=== PATIENT | female | born 1960 | race Caucasian/White ===

== ENCOUNTER 2017-01-10 08:06 | Day surgery (SDC) | payer OTHER ==
[2017-01-06 10:50] VITALS: BMI 31.5
[~2017-01-10 08:06] MED LIST: Pre Op ABX Message 1 EACH MISC MISCELLANE ONE
[2017-01-10] MEDS ORDERED: ONDANSETRON 4 MG/2 ML VIAL IVP ONE (08:11)
[2017-01-10] MEDS ORDERED: DEXAMETHASONE SOD PHOSPHATE 10 MG/ML 1 ML VIAL IV ONE (08:11)
[2017-01-10] MEDS ORDERED: MIDAZOLAM 2 MG/2 ML VIAL IV PRN (08:11)
[2017-01-10] MEDS ORDERED: LACTATED RINGERS 1,000 ML IV SCH (08:11)
[2017-01-10 08:33] VITALS: TEMP 97.9
[2017-01-10] MEDS ORDERED: LIDOCAINE 1% 20 ML VIAL (10MG/ML) FOR IV START INTRADERMA ONE (08:34)
[2017-01-10] MEDS ORDERED: PROPOFOL 10 MG/ML 20 ML VIAL IV ONE (09:15)
[2017-01-10] MEDS ORDERED: KETOROLAC 30 MG/ML 1 ML VIAL ONE (09:15)
[2017-01-10] MEDS ORDERED: BUPIVACAINE (PF) 0.25% 30 ML VIAL MISCELLANE ONE (09:24)
[2017-01-10] MEDS ORDERED: methylPREDNISolone ACETATE 80 MG/ML 1 ML VIAL INJ ONE (09:24)
[2017-01-10] MEDS: HYDROmorphone 1 MG/ML 1 ML SYRINGE IVP PRN ×2 (09:35→09:45)
--- NOTE | 2017-01-10 09:45 | P.OP ---
Date of Procedure: 01/10/17 Preoperative Diagnosis: Arthrofibrosis left knee, status post total knee arthroplasty. Postoperative Diagnosis: Arthrofibrosis left knee, status post total knee arthroplasty Procedure(s) Performed: Manipulation under anesthesia left knee Intra-articular cortisone injection Anesthesia: DESHAWN Surgeon: Kane Rubio Estimated Blood Loss (ml): 0 Pathology: none sent Condition: stable Disposition: PACU Indications for Procedure: This is a 48-year-old female has had a total knee arthroplasty by myself in October. She has subsequently developed arthrofibrosis despite aggressive physical therapy after discussing the surgical and nonsurgical treatment options with her at length, she wishes to proceed with a manipulation under anesthesia of her left knee, and injection of cortisone. Consent was obtained Operative Findings: Operative findings are consistent with severe arthrofibrosis of the left knee Description of Procedure: Patient was seen and evaluated in the post operative area. The consent was reviewed and the operative site was marked with a skin marker. A universal timeout was then performed, which confirmed the patient's name, surgical site, ALLERGIES, and consent. A general anesthetic was administered by the anesthesia department. After adequate anesthesia was administered, the left knee was then examined. Her range of motion was -5-80 passively. A gentle manipulation was then performed, with multiple lesions felt to be released. Her postoperative range of motion was 0-120. Next, her knee was then prepped with ChloraPrep. An intra-articular injection of cortisone was performed, which consisted of 80 mg of Depo-Medrol and 5 mL of 0.25% ropivacaine. This was done in a sterile fashion. A Band-Aid was placed over the injection site. The patient then recovered in the postoperative unit without incident. Patient will present to physical therapy later today, and then follow-up with me in 1 week.
[2017-01-10 10:55] VITALS: BP 155/88; PULSE 78; RESP 18
== END 2017-01-10 11:18 | disposition home or self-care (01) ==
LOC: OR 08:06
PROVIDERS: ATTEND Orthopaedic Surgery
DX: M24.662 Ankylosis, left knee (principal); Z96.652 Presence of left artificial knee joint; I10 Essential (primary) hypertension; Z95.810 Presence of automatic (implantable) cardiac defibrillator; Z88.8 Allergy status to other drugs, medicaments and biological substances; Z79.899 Other long term (current) drug therapy; Z87.891 Personal history of nicotine dependence
CPT/HCPCS: 27570; J1040; J1100; J2405; J1885; J1170; J2704

== ENCOUNTER → 2017-03-21 | Outpatient (CLI) | payer OTHER ==
[2017-03-21 14:41] LABS: CH 28.8; CHCM 33.2; HCT 45.6 % (34.0-46.0); HDW 2.78; HGB 14.5 gm/dL (11.4-16.0); MCH 27.6 pg (25.0-35.0); MCHC 31.7 g/dL (31.0-37.0); Mean Platelet Volume 6.2; RBC 5.24 m/uL (3.80-5.40); RDW 14.3 % (11.5-15.5); WBC 6.3 k/uL (3.8-10.6)
[2017-03-21 14:56] LABS: ALT 34 U/L (9-52); AST 21 U/L (14-36); Alkaline Phosphatase 89 U/L (38-126); Anion Gap 10 mmol/L; Appearance,Urine Clear (Clear); Bilirubin,Urine Negative (Negative); Blood Urea Nitrogen 13 mg/dL (7-17); Calcium 9.4 mg/dL (8.4-10.2); Carbon Dioxide 27 mmol/L (22-30); Chloride 105 mmol/L (98-107); Glucose 99 mg/dL (74-99); Glucose,Urine (UA) Negative (Negative); Ketones,Urine Negative (Negative); Leukocyte Esterase,Urine Negative (Negative); Nitrite,Urine Negative (Negative); Non-African American GFR(MDRD) >60 (>60 ml/min/1.73 sqM); PH, Urine 5.5 (5.0-8.0); Potassium 4.1 mmol/L (3.5-5.1); Protein,Urine Negative (Negative); Sodium 142 mmol/L (137-145); Specific Gravity,Urine 1.007 (1.001-1.035); Total Bilirubin 0.7 mg/dL (0.2-1.3); Total Protein 7.2 g/dL (6.3-8.2); UA Billing (MACRO vs. MICRO) CHEM; Urobilinogen,Urine <2.0 mg/dL (<2.0)
[2017-03-21 14:57] LABS: Partial Thromboplastin Time 25.3 sec (22.0-30.0); Prothrombin Time 10.6 sec (9.0-12.0)
== END | disposition home or self-care (01) ==
LOC: LABWHC1 14:09
PROVIDERS: ATTEND Orthopaedic Surgery
DX: Z01.812 Encounter for preprocedural laboratory examination (principal)
CPT/HCPCS: 36415; 80053; 81003; 85027; 85610; 85730; 87070

== ENCOUNTER 2017-03-29 09:49 | Inpatient (IN) | payer OTHER ==
[2017-03-24 14:38] VITALS: BMI 34.4
[~2017-03-29 09:49] MED LIST changes: +ACETAMINOPHEN TAB 500 MG TAB PO ONE; +DEXAMETHASONE SOD PHOSPHATE 10 MG/ML 1 ML VIAL IV ONE; +HYDROmorphone 1 MG/ML 1 ML SYRINGE IVP PRN; +MELOXICAM 7.5 MG TAB PO ONE; +MIDAZOLAM 2 MG/2 ML VIAL IV PRN; +ONDANSETRON 4 MG/2 ML VIAL IVP ONE; -Pre Op ABX Message 1 EACH MISC MISCELLANE ONE; +ROPIVACAINE 246.25 MG, EPINEPHrine 0.5 MG, KETOROLAC 30 MG, cloNIDine HCL/PF 80 MCG, WA... MISCELLANE ONE; +TRANEXAMIC ACID 1,000 MG in SODIUM CHLORIDE 0.9% 100 ML IVPB ONE; +ceFAZolin 2 GM in SODIUM CHLORIDE 0.9% 100 ML IVPB ONE
[2017-03-29] MEDS: LACTATED RINGERS 1,000 ML IV SCH (10:59)
[2017-03-29] MEDS ORDERED: MIDAZOLAM 2 MG/2 ML VIAL IVP ONE (11:27)
[2017-03-29] MEDS ORDERED: ROPIVACAINE 1,100 MG, SODIUM CHLORIDE 0.9% 330 ML MISCELLANE PRN ×2 (11:50)
[2017-03-29] MEDS ORDERED: TRANEXAMIC ACID 1,000 MG/10 ML VIAL ONE (12:05)
[2017-03-29] MEDS ORDERED: diphenhydrAMINE 50 MG/ML 1 ML VIAL ONE (12:05)
[2017-03-29] MEDS ORDERED: SODIUM CHLORIDE 0.9% 100 ML BAG ONE (12:05)
[2017-03-29] MEDS ORDERED: fentaNYL (PF) 50 MCG/ML 2 ML AMP ONE (12:05)
[2017-03-29] MEDS ORDERED: MIDAZOLAM 2 MG/2 ML VIAL ONE (12:05)
[2017-03-29] MEDS ORDERED: PROPOFOL 10 MG/ML 20 ML VIAL IV ONE (12:05)
[2017-03-29] MEDS ORDERED: ceFAZolin 3,000 MG in SODIUM CHLORIDE 0.9% IRRIGATIO 3,000 ML IRRIGATION ONE (12:43)
[2017-03-29] MEDS ORDERED: LACTATED RINGERS 1,000 ML IV ONE (13:12)
[2017-03-29] MEDS ORDERED: NA PHOS,M-B/NA PHOS,DI-BA 133 ML ENEMA RECTAL PRN (13:39)
[2017-03-29] MEDS ORDERED: HYDROmorphone 1 MG/ML 1 ML SYRINGE IVP PRN ×3 (13:39)
[2017-03-29] MEDS ORDERED: MAGNESIUM HYDROXIDE 2,400 MG/10 ML CUP PO PRN (13:39)
[2017-03-29] MEDS ORDERED: ONDANSETRON 4 MG/2 ML VIAL IVP PRN (13:39)
[2017-03-29] MEDS ORDERED: HYDROcodone/APAP 5-325MG 1 EACH TAB PO PRN (13:39)
[2017-03-29] MEDS ORDERED: DIAZEPAM 5 MG TAB PO PRN ×2 (13:39)
[2017-03-29] MEDS ORDERED: BISACODYL 10 MG SUPP RECTAL PRN (13:39)
[2017-03-29] MEDS ORDERED: NALOXONE 0.4 MG/ML 1 ML VIAL IV PRN (13:39)
--- NOTE | 2017-03-29 15:11 | P.OP ---
Date of Procedure: 03/29/17 Preoperative Diagnosis: 1. Severe osteoarthritis right knee 2. Arthrofibrosis left knee Postoperative Diagnosis: 1. Severe osteoarthritis right knee 2. Arthrofibrosis left knee Procedure(s) Performed: 1. Right total knee arthroplasty 2. Manipulation under anesthesia left knee Implants: Pérez and Nephew Oxinium femoral component size 6, right Pérez & Nephew Patrizia II right nonporous tibial baseplate size 5 Pérez [employer] Nephew size 13 mm Legion XLPE dished articular insert, size 5-6 Pérez [employer]hew Patrizia II resurfacing patellar component, 32 mm All components were cemented using Patrick bone cement.. The articulation is ceramic on polyethylene. Anesthesia: spinal Surgeon: Kane Rubio Roastmaster #1: Marci Adhikari Roastmaster #2: Jodee Osullivan Estimated Blood Loss (ml): 50 Pathology: other (Bone and cartilage) Condition: stable Disposition: PACU Indications for Procedure: After failure of conservative treatment we discussed the surgical and nonsurgical treatment options at length. Patient wishes to proceed with a total knee arthroplasty. Complications specific to this procedure were discussed at length, including but not limited to infection, bleeding, stiffness , and nerve injury. Patient is aware of all these complications and informed consent was obtained. Also, she has had a left total knee arthroplasty performed in the past. Continues to have some mild stiffness, and wishes to have her left knee manipulated under anesthesia. Informed consent was also obtained for this procedure. Operative Findings: The operative findings are consistent with severe osteoarthritis of the right knee, and arthrofibrosis of the left knee. Description of Procedure: Patient was seen in the preoperative area consent was reviewed and operative site was marked with a skin marker. An adductor canal pain catheter was placed by anesthesia in the preoperative area. Patient was then brought to the operating room and given preoperative antibiotics intravenously. A spinal anesthetic was administered by the anesthesia department. A tourniquet was placed on the upper thigh and the lower extremity was prepped and draped in usual sterile fashion. A gram of transexamic acid was given. A universal timeout was then performed which confirmed the patient's name, surgical site, ALLERGIES, and consent. The left knee was then examined under anesthesia. Her range of motion was 0-115 . A gentle manipulation was then performed to the left knee with multiple adhesions felt to be released. Final flexion was 125. The right lower extremity was then exsanguinated and tourniquet was inflated to 250 mmHg. A standard and anterior midline approach to the knee was performed. The skin and subcutaneous tissue was dissected down to the patellar tendon. A medial parapatellar arthrotomy was then performed. The knee was then extended, the patellar was everted, and the knee was again flexed. Anterior horns of both menisci were excised, and a release was performed to the posterior medial aspect of the knee. On gross visual inspection, there was complete loss of articular cartilage in the medial and patellofemoral joint spaces. There was also significant cartilage damage in the lateral compartment. There were multiple periarticular osteophytes which were then removed with a Ronguer. The femoral canal was then opened with the appropriate drill, and the intramedullary femoral cutting guide was then placed and set for 4 of valgus. The distal femoral cutting block was then pinned in place, and the distal femur was then cut. The cutting block was then removed and the cut was checked for flatness. Next, the sizing guide was then placed and set for 3 external rotation based off of the epicondylar axis and Whitesides line. After the femur was sized, the appropriate 4-in-1 cutting block was then pinned in place. The anterior condyles were cut without notching. The posterior and chamfer cuts were performed while protecting the collateral ligaments. The cutting block was then removed, and the femoral canal was plugged with autologous bone. Attention was then directed to the tibia. The remaining ACL was removed with a Ronguer, and the tibia was then gently subluxed forward with a large bent knee retractor. Any remaining menisci was excised. The posterior lateral corner was cauterized in order to cauterize the lateral geniculate artery. The extra medullary tibial cutting guide was then placed, set for the appropriate rotation , slope, and depth of resection. The proximal tibia cutting guide was then pinned in place. Proximal tibia was then cut and sized. Next trials were then placed with the appropriate-sized insert. The knee was able to fully extend and flex to 130 and was stable throughout all range of motion. The knee was then extended, patella everted. Patella was then measured, and then using an osteotomy guide, the patella was cut at the appropriate level. The patella was then measured and drilled and the patella trial was then placed. The knee was then taken through range of motion with the patella trial and the patella tracked normally. The knee was then extended patella trial was then removed and the patella was everted. Knee was then flexed and lug holes were drilled through the femoral trial and the femoral trial was then removed. The tibial was then exposed, and the tibial broach guide was then pinned in place after it was set for the appropriate rotation to allow for the most coverage without overhang. The tibia was then reamed and broached. The cut surfaces of bone were then irrigated with pulsatile lavage. The posterior structures were injected with the ropivacaine solution. The knee was also irrigated with Irrisept solution. The components were then opened, the cement was mixed, and the components were then cemented in place. The cement was allowed to harden with the knee in full extension. While the cement was hardening, the remaining soft tissues were then injected with a ropivacaine solution, which consisted of 246.25 mg of ropivacaine, 0.5 mg of epinephrine, 30 mg of Toradol, 80 g of clonidine, and 48.45 mL of sterile water, for a total of 100 mL of fluid injected. After the cemented hardened. The tourniquet was released, and hemostasis was obtained. A second gram of transexamic acid was given. The knee was again irrigated. The knee was again taken through range of motion and found to be stable throughout all range of motion of 0-130 , and the patella tracked normally. The fascia was then closed with #2 strata fix suture. The subcutaneous tissue was closed with 3-0 Vicryl and 3-0 strata fix. Dermabond tape was used for the skin and placed with the knee in flexion. The patient was placed in a sterile dressing. Patient was then transferred to recovery room in stable condition. The assistant site manager AYAAN Hood was required due the complexity surgery and the need for a skilled surgical instruments inspector. She assisted in positioning, draping , retraction, and closure of the wound.
--- NOTE | 2017-03-29 15:12 | XR ---
EXAMINATION TYPE: XR knee limited RT DATE OF EXAM: 03/29/2017 2:05 PM COMPARISON: NONE TECHNIQUE: Two views submitted HISTORY: Post op FINDINGS: There is a prosthetic knee in near anatomic alignment. There is soft tissue edema and emphysema. IMPRESSION: 1. Postoperative change. Appears in near-anatomic alignment
[2017-03-29] MEDS: SODIUM CHLORIDE 0.9% 1,000 ML IV SCH (16:15)
[2017-03-29] MEDS: HYDROcodone/APAP 5-325MG 1 EACH TAB PO PRN (17:00)
--- NOTE | 2017-03-29 19:33 | P.ONQ ---
Anesthesiology Proc Note - PNB - Peripheral Nerve Block Performed Right Adductor Canal Indication: Acute Post-Operative Pain, Dx/Pain Location (Right Knee) Specifically requested for management of pain by DrKathya: Kane Rubio Sedation Type: Sedate with meaningful contact maintained Preparation: Sterile Dressing Position: Supine Catheter: Indwelling Needle Size: 100mm (4") Needle Gauge: 21, Other (see comment) (Pajunk Needle) Technique: Ultrasound Injectate: 0.5% Ropivacaine (see comment for volume) (30 cc) Blood Aspirated: No Pain Paresthesia on Injection Noted: No Resistance on Injection: Normal Events: Uneventful and Well Tolerated
[2017-03-29] MEDS: ASPIRIN 325 MG TAB PO SCH (20:53)
[2017-03-29] MEDS: SENNOSIDES-DOCUSATE SODIUM 1 EACH TAB PO SCH (20:53)
[2017-03-29] MEDS: ceFAZolin 2 GM in SODIUM CHLORIDE 0.9% 100 ML IVPB SCH (20:53)
--- NOTE | 2017-03-29 23:28 | CONS ---
DATE OF CONSULTATION: 03/29/2017 REASON FOR CONSULTATION: Medical management requested by Dr. Rubio. CONSULTATION: This is a pleasant 56-year-old patient of Dr. Oh who has undergone right total knee arthroplasty. Patient's pain is controlled. No nausea, vomiting or chest pain. Patient's chronic stable medical conditions include hypertension, arthritis in other joints. She also has an AICD for sudden cardiac in 2004. Patient's family is at the bedside. Denies any chest pain. REVIEW OF SYSTEMS: CONSTITUTIONAL: Tired. HEENT: None. RESPIRATORY: None. CARDIOVASCULAR: None. GASTROINTESTINAL: None. GENITOURINARY: None. MUSCULOSKELETAL: Pain in different joints. HEMATOLOGIC: None. LYMPHATICS: None. PSYCHIATRY: None. NEUROLOGICAL: None. PAST MEDICAL HISTORY: 1. Hypertension. 2. Osteoarthritis. 3. Sudden cardiac . PAST SURGICAL HISTORY: 1. Cardiac ablation. 2. Cardiac catheterization. 3. Left knee replaced. SOCIAL HISTORY: The patient owns [employer] in [place]. Lives by herself. Patient smoked a small amount for a few years; stopped some time ago. FAMILY HISTORY: Factor V Leiden. HOME MEDICATIONS: 1. Quinidine 324 mg p.o. at bedtime. 2. Tenormin 25 mg p.o. daily. 3. Aspirin 81 mg p.o. daily. ALLERGIES: AMIODARONE and LIDOCAINE. PHYSICAL EXAMINATION: VITAL SIGNS ON PRESENTATION: Temperature 96.8, pulse 68, respiration 18, blood pressure 122/61, pulse ox 97% on room air. GENERAL APPEARANCE: Well built; BMI 34.4. Lying in bed. EYES: Pupils equal. Conjunctivae normal. HEENT: External appearance of nose and ears normal. Oral cavity normal. NECK: JVD not raised. Mass not palpable. RESPIRATORY: Effort normal. LUNGS: Diminished breath sounds. CARDIOVASCULAR: First and second sounds normal. No edema. ABDOMEN: Soft, nontender. Liver and spleen not palpable. LYMPHATIC: No lymph node palpable in neck or axillae. PSYCHIATRY: Alert and oriented x3. Mood and affect normal. INVESTIGATIONS: No blood work from today. ASSESSMENT: 1. Right total knee arthroplasty. 2. Essential hypertension. 3. Primary osteoarthritis in multiple joints. 4. History of sudden cardiac with AICD in place. 5. Obesity; body mass index of 34.4. PLAN: Patient's blood pressure medication will be resumed. Patient is on aspirin for DVT prophylaxis. Venodyne boots in place. Care was discussed with the patient. Thank you, Dr. Rubio.
[2017-03-30] MEDS: HYDROcodone/APAP 5-325MG 1 EACH TAB PO PRN ×4 (01:14→22:25)
[2017-03-30] MEDS: ceFAZolin 2 GM in SODIUM CHLORIDE 0.9% 100 ML IVPB SCH (04:00)
[2017-03-30 08:07] LABS: Basophils % (A) 0 %; CH 28.8; Eosinophils # (A) 0.1 k/uL (0-0.7); Eosinophils % (A) 1 %; HCT 36.5 % (34.0-46.0); HDW 2.77; HGB 12.1 gm/dL (11.4-16.0); Luc # (Auto) 0.19; Luc % (Auto) 1; Lymphocytes # (A) 1.3 k/uL (1.0-4.8); Lymphocytes % (A) 10 %; MCH 28.9 pg (25.0-35.0); MCV 87.5 fL (80.0-100.0); Mean Platelet Volume 6.3; Monocytes # (A) 0.8 k/uL (0-1.0); Monocytes % (A) 6 %; Neutrophils # (A) 11.3 k/uL (1.3-7.7); Neutrophils % (A) 83 %; RBC 4.17 m/uL (3.80-5.40); RDW 14.1 % (11.5-15.5); WBC 13.7 k/uL (3.8-10.6); WBC (Perox) 14.67
[2017-03-30] MEDS: LACTATED RINGERS 1,000 ML IV SCH (08:59)
[2017-03-30] MEDS: SODIUM CHLORIDE 0.9% 1,000 ML IV SCH ×2 (08:59→22:27)
[2017-03-30] MEDS: ATENOLOL 25 MG TAB PO SCH (09:00)
[2017-03-30] MEDS: ASPIRIN 325 MG TAB PO SCH ×2 (09:00→22:24)
--- NOTE | 2017-03-30 09:18 | P.PN ---
Subjective Principal diagnosis: Status post total knee arthroplasty. This is a well-appearing 56-year-old female who is status post total knee arthroplasty. Today is postoperative day #1. Patient was seen and evaluated at bedside with Dr. Kane Rubio today. Patient states that she has been up and walking. Patient has no complaints today. Objective - Vital Signs Vital signs: Vital Signs Temp 97.4 F L 03/30/17 07:44 Pulse 70 03/30/17 07:44 Resp 17 03/30/17 02:09 BP 128/74 03/30/17 07:44 Pulse Ox 96 03/30/17 07:44 Intake & Output 03/29/17 03/30/17 03/30/17 18:59 06:59 18:59 Intake Total 1706 850 Output Total 50 Balance 1656 850 Weight 108.862 kg Intake: IV 1706 Intake, IV Titration 850 Amount Sodium Chloride 0.9% 1, 650 000 ml @ 65 mls/hr IV . [id number] RIRI Rx#:[id number] ceFAZolin 2 gm In Sodium 200 Chloride 0.9% 100 ml @ 100 mls/hr IVPB Q8H RIRI Rx#:[id number] Output: Estimated Blood Loss 50 Other: Voiding Method Indwelling Catheter # Voids 1 - Exam Patient is in no acute distress and is alert and oriented 3. Vital signs are stable. Calf is soft and nontender. Incision is clean, dry, and intact. Neurovascular status intact. Patient has full foot and ankle motion. - Labs CBC & Chem 7: 03/30/17 07:18 Labs: Abnormal Lab Results - Last 24 Hours (Table) 03/30/17 Range/Units 07:18 WBC 13.7 H (3.8-10.6) k/uL Neutrophils # 11.3 H (1.3-7.7) k/uL Assessment and Plan (1) Primary localized osteoarthritis of left knee Status: Acute (2) Status post left knee replacement Status: Acute Plan: #1 continue with routine postoperative care. #2 anticoagulation with aspirin. #3 physical therapy and CPM today. #4 appreciated input from medicine. #5 anticipate discharged home with home care likely tomorrow.
[2017-03-30] MEDS: MELOXICAM 7.5 MG TAB PO SCH (09:24)
--- NOTE | 2017-03-30 09:35 | P.PN ---
Progress Note - Text Postoperative day # 1 status post total knee arthroplasty, on adductor canal perineural catheter placed for postoperative analgesia. Ropivacaine 0.2% 8 mL per hour through ON-Q pump continuous infusion. Pain is well controlled. On visual analog scale 2/10. Pain at the site of tourniquette Patient is taking PRN oral pain medications. Catheter site: Looks Ok. There is no erythema or tenderness. Continue with the current pain management plan and will follow.
[2017-03-30] MEDS ORDERED: [UNRECOGNIZED DRUG - OTHER] PO SCH ×2 (10:00→21:00)
--- NOTE | 2017-03-30 12:33 | PN ---
DATE OF SERVICE: 03/30/2017 PRESENTING COMPLAINT: Right knee surgery. INTERVAL HISTORY: Patient is status post right knee surgery, some pain is present in the knee. No nausea, vomiting, tolerating her breakfast. Sitting up on a chair. Waiting for physical therapy. Review of systems done for constitutional, cardiovascular, GI, pulmonary, musculoskeletal; relevant findings as above. Current medications are reviewed. On examination, temperature 97.4, pulse 70, respirations 17, blood pressure 120/74, pulse ox 96% on room air. GENERAL APPEARANCE: Siting up in a reclining chair, comfortable. EYES: Pupils equal. Conjunctivae normal. NECK: JVD not raised. Mass not palpable. RESPIRATORY: Effort normal. LUNGS: Diminished breath sounds. CARDIOVASCULAR: First and second sounds normal. No edema. ABDOMEN: Soft, nontender. Liver and spleen not palpable. PSYCHIATRY: Alert and oriented x3. Mood and affect normal. INVESTIGATIONS: White count 13.7, hemoglobin 12.1. ASSESSMENT: 1. Right total knee arthroplasty. 2. Essential hypertension. 3. Primary osteoarthritis of multiple joints. 4. History of sudden cardiac with AICD in place. 5. Obesity; body mass index of 34.4. PLAN: Continue current medication and treatment plan. Care was discussed with the patient. Thank you, Dr. Rubio.
[2017-03-30] MEDS: hydrOXYzine PAMOATE 25 MG CAP PO PRN ×2 (16:39→22:24)
[2017-03-30 19:35] VITALS: RESP 16
[2017-03-30] MEDS: SENNOSIDES-DOCUSATE SODIUM 1 EACH TAB PO SCH (22:23)
[2017-03-31] MEDS: HYDROcodone/APAP 5-325MG 1 EACH TAB PO PRN (03:30)
[2017-03-31] MEDS: hydrOXYzine PAMOATE 25 MG CAP PO PRN (03:30)
[2017-03-31] MEDS: LACTATED RINGERS 1,000 ML IV SCH (05:27)
[2017-03-31 07:13] VITALS: BP 106/67; PULSE 72; TEMP 97.9
--- NOTE | 2017-03-31 08:58 | P.DS ---
Providers Date of admission: 03/29/17 09:49 Expected date of discharge: 03/31/17 Attending physician: Kane Rubio Consults: 03/29/17 13:39 Consult Physician Routine Consulting Provider: Matty Solomon Consult Reason/Comments: medical management Do you want consulting provider notified?: Yes Primary care physician: Rolly Oh - Discharge Diagnosis(es) (1) Primary localized osteoarthritis of left knee Current Visit: No Status: Acute (2) Status post left knee replacement Current Visit: No Status: Acute Hospital Course: This is a 56-year-old female with known history of degenerative arthritis of the right knee. The patient presents for evaluation. After discussion and consideration patient elects to proceed with total knee arthroplasty. The patient is seen preoperatively by Dr. Rubio and cleared for surgery. Patient is admitted to [facility] on 03/29/2017 for total knee arthroplasty. The procedures performed without complication or sequelae. The patient is doing well postoperatively. Labs and vital signs are stable on day of discharge. On day of discharge patient's knee incision is healing well. There is minimal erythema. There is no drainage noted at this time. There is minimal soft tissue swelling to the knee. Patient has full foot and ankle motion without difficulty or pain. Neurovascular status to the right lower extremity is intact. Patient has been up and walking with physical therapy. Patient is discharged home in good condition. Please see med rec for accurate list of home medications. Plan - Discharge Summary New Discharge Prescriptions: Aspirin 325 mg PO BID #60 tab HYDROcodone/APAP 5-325MG [Hurley 5-325] 1 - 2 tab PO Q4-6H PRN #90 tab PRN Reason: Pain Sennosides-Docusate Sodium [Senokot-S] 1 tab PO BID #60 tablet Discharge Medication List Atenolol [Tenormin] 25 mg PO QAM 10/26/16 [History] quiNIDine GLUCONATE 324 mg PO HS 10/26/16 [History] Aspirin 81 mg PO DAILY 03/24/17 [History] Aspirin 325 mg PO BID #60 tab 03/30/17 [Rx] HYDROcodone/APAP 5-325MG [Hurley 5-325] 1 - 2 tab PO Q4-6H PRN #90 tab 03/30/17 [ Rx] Sennosides-Docusate Sodium [Senokot-S] 1 tab PO BID #60 tablet 03/30/17 [Rx] Follow up Appointment(s)/Referral(s): Rolly Oh MD [Primary Care Provider] - 2 Weeks [facility], [NON-STAFF] - 1 Week Kane Rubio DO [Doctor of Osteopathic Medicine] - 2 Weeks Ambulatory/Diagnostic Orders: Continuous Passive Motion (CPM) Machine [DME.AMB1] Time Frame: 2 Weeks, Location : Determined By Patient Activity/Diet/Wound Care/Special Instructions: Weightbearing as tolerated with a walker CPM 5-6h daily Daily dressing changes, keep incision clean and dry May shower if no drainage from incision [facility] with questions or concerns [phone] Discharge Disposition: HOME WITH HOME HEALTH SERVICES
[2017-03-31] MEDS ORDERED: HYDROcodone/APAP 7.5-325MG 1 EACH TAB PO PRN ×3 (09:36→09:55)
[2017-03-31] MEDS: ATENOLOL 25 MG TAB PO SCH (09:43)
[2017-03-31] MEDS: MELOXICAM 7.5 MG TAB PO SCH (09:43)
[2017-03-31] MEDS: ASPIRIN 325 MG TAB PO SCH (09:43)
--- NOTE | 2017-03-31 11:41 | PN ---
DATE OF SERVICE: 03/31/2017 PRESENTING COMPLAINT: Right knee surgery. INTERVAL HISTORY: Patient is status post right knee surgery, pain is much better controlled, up and about, keen to go home, tolerating a breakfast. No chest pain or shortness of breath. Review of systems done for constitutional, cardiovascular, GI, pulmonary, musculoskeletal; relevant findings as above. Current medications are reviewed. On examination, temperature 97.9, pulse 72, respirations 16, blood pressure 106/67, pulse ox 94% on room air. GENERAL APPEARANCE: Sitting up in the chair, comfortable. EYES: Pupils equal. Conjunctivae normal. NECK: JVD not raised. Mass not palpable. RESPIRATORY: Effort normal. LUNGS: Slightly decreased breath sounds. CARDIOVASCULAR: First and second sounds normal. No edema. ABDOMEN: Soft, nontender. Liver and spleen not palpable. PSYCHIATRY: Alert and oriented x3. Mood and affect normal. INVESTIGATIONS: No blood work from today. ASSESSMENT: 1. Right total knee arthroplasty. 2. Essential hypertension. 3. Primary osteoarthritis of multiple joints, bilateral. 4. History of sudden cardiac , has an AICD in place. 5. Obesity, body mass index of 34.4. PLAN: Doing well, continue current medication and treatment plan. Should follow with the family doctor on discharge. Thank you, Dr. Rubio.
[2017-03-31] MEDS: SODIUM CHLORIDE 0.9% 1,000 ML IV SCH (13:15)
== END 2017-03-31 14:02 | disposition home health service (06) | DRG 470 ==
LOC: 2ORMAIN 09:49 → 3SUR 13:50
PROVIDERS: ADMIT Orthopaedic Surgery; ATTEND Orthopaedic Surgery
PROC: 0SRC0J9 Replacement of Right Knee Joint with Synthetic Substitute, Cemented, Open Approach (ICD-10-PCS; principal; 2017-03-29 11:30)
DX: M17.11 Unilateral primary osteoarthritis, right knee (principal); Z86.74 Personal history of sudden cardiac arrest; I10 Essential (primary) hypertension; E66.9 Obesity, unspecified; Z68.34 Body mass index [BMI] 34.0-34.9, adult; Z79.82 Long term (current) use of aspirin; Z87.891 Personal history of nicotine dependence; Z95.810 Presence of automatic (implantable) cardiac defibrillator; Z79.899 Other long term (current) drug therapy
CPT/HCPCS: 85025; 88300